=== PATIENT | female | born 1970 | race Hispanic/Latino ===

== ENCOUNTER 2019-03-03 23:37 | Emergency (ER) | payer SELFPAY ==
[~2019-03-03] VITALS: Ht 152.4 cm; Wt 65.8 kg
--- OUTSIDE RECORDS SUMMARY | 2019-03-03 23:40 | XMS REPORT ---
Author Author [facility] Address Unknown Phone Unavailable Care Team Providers Care Digital Print Operator Name Role Phone Unavailable Unavailable Problems This patient has no known problems. Allergies, Adverse Reactions, Alerts This patient has no known allergies or adverse reactions. Medications This patient has no known medications. Results Test Description Test Time Test Comments Text Results Atomic Results Result Comments SCR MAMM BILATERAL MUSA CAD DIGITAL 2018-03-15 12:48:15 - SCR MAMM BILATERAL MUSA CAD DIGITALBILATERAL DIGITAL SCREENING MAMMOGRAM 3D/2D WITH CAD: 03/12/2018CLINICAL: Asymptomatic. Digital breast tomosynthesis was performed in addition to routine CC and MLO views. Current mammographic images were evaluated by either a [employer] M-Vu or a [employer] ImageChecker CAD (computer aided detection system). Comparison is made to exams dated 08/31/2016 mammogram and 03/23/2015 mammogram - [facility]. The tissue of both breasts is heterogeneously dense. This may lower the sensitivity of mammography. There are benign calcifications in the left breast. No suspicious mass, architectural distortion, malignant type calcification, or lymph node abnormality detected. Breast architecture is stable compared to prior exams.IMPRESSION: BENIGNThere is no mammographic evidence of malignancy. Resume annual screening mammography in one year. Rogelio butt/gabriele:03/15/2018 12:48:15 Attending Technologist: Teresa Marley MM, [facility] Technologist: Mireya Villalobos MM, [facility]letter sent: BIRADS 1-2 Normal Mammogram BI-RADS: 2 Benign
--- NOTE | 2019-03-04 01:17 | Diagnostic Imaging Report ---
EXAMINATION: CHEST 2 VIEWS INDICATION: Cough. COMPARISON: None FINDINGS: TUBES and LINES: None. LUNGS: Low lung volumes with mild bronchial wall thickening. Mild patchy right basilar opacity, likely atelectasis. No evidence of lobar consolidation. PLEURA: No pleural effusion or pneumothorax. HEART AND MEDIASTINUM: The cardiomediastinal silhouette is unremarkable. BONES AND SOFT TISSUES: No acute osseous lesion. Soft tissues are unremarkable. UPPER ABDOMEN: No free air under the diaphragm. IMPRESSION: Low lung volumes with mild bronchial thickening, suggestive of bronchitis in the setting of cough. Mild patchy right basilar opacity, more likely atelectasis than pneumonia. Signed by: Dr. Anila Blackwell MD on 03/04/2019 1:13 AM
[2019-03-04 01:23] VITALS: BP 114/69
== END 2019-03-04 01:00 | disposition home or self-care (01) ==
LOC: ER 23:37
DX: R05 Cough (principal); J20.8 Acute bronchitis due to other specified organisms
CPT/HCPCS: 71046; 99283

== ENCOUNTER 2021-04-09 09:26 | Emergency (ER) | payer SELFPAY ==
[~2021-04-09] VITALS: Ht 152.4 cm; Wt 65.8 kg
[2021-04-09] MEDS ORDERED: MUCINEX DM ER1 EACH PO (09:36)
== END 2021-04-09 09:55 | disposition home or self-care (01) ==
LOC: ER 09:33
DX: U07.1 COVID-19 (principal); R05.9 Cough, unspecified; R50.9 Fever, unspecified
CPT/HCPCS: 99283

== ENCOUNTER 2022-04-14 00:05 | Emergency (ER) | payer SELFPAY ==
[~2022-04-14] VITALS: Ht 152.4 cm; Wt 65.8 kg
[~2022-04-14 00:05] MED LIST: MUCINEX DM ER1 EACH PO
[2022-04-14] MEDS ORDERED: SODIUM CHLORIDE 0.9% 1000ML 1,000 ML IV STA (00:10)
[2022-04-14] MEDS ORDERED: ACETAMINOPHEN 325 MG TAB PO STA (00:10)
[2022-04-14] MEDS ORDERED: ONDANSETRON HCL INJ 2MG/ML 2ML 2 MG/ML VIAL IV STA (00:12)
[2022-04-14] MEDS ORDERED: Morphine 4mg INJECTION 4 MG/ML INJ IV ONE (00:15)
[2022-04-14 00:26] LABS: BASOPHILS % 0.2 % (0.0-1.0); EOSINOPHILS # (AUTO) 0.1 (0.0-0.4); EOSINOPHILS % 1.3 % (0.0-6.0); HEMATOCRIT 37.7 % (34.2-44.1); LYMPHOCYTES % 19.3 % (18.0-39.1); MEAN CORPUSCULAR HEMOGLOBIN 29.2 pg (28-32); MEAN CORPUSCULAR HGB CONC 31.8 g/dL (31-35); MEAN CORPUSCULAR VOLUME 91.7 fL (81-99); MONOCYTES # (AUTO) 0.7 (0.2-0.8); MONOCYTES % 7.1 % (4.4-11.3); NEUTROPHILS # (AUTO) 7.4 (2.1-6.9); NEUTROPHILS % 71.8 % (38.7-80.0); PLATELET COUNT 258 x10e3/uL (140-360); RED BLOOD COUNT 4.11 x10e6/uL (3.6-5.1); RED CELL DISTRIBUTION WIDTH 12.1 % (11.7-14.4)
[2022-04-14] MEDS ORDERED: ACETAMINOPHEN 325 MG TAB ONE (00:31)
[2022-04-14] MEDS ORDERED: ONDANSETRON HCL INJ 2MG/ML 2ML 2 MG/ML VIAL ONE (00:31)
[2022-04-14] MEDS ORDERED: Morphine 4mg INJECTION 4 MG/ML INJ ONE (00:32)
[2022-04-14 00:49] LABS: CLARITY,URINE CLEAR (CLEAR); COLOR,URINE STRAW (YELLOW); KETONES,URINE NEGATIVE (NEGATIVE); LEUKOCYTE ESTERASE ,URINE NEGATIVE (NEGATIVE); NITRITE,URINE NEGATIVE (NEGATIVE); PROTEIN,URINE DIPSTICK NEGATIVE (NEGATIVE); URINE UROBILINOGEN 0.2 mg/dL (0.2 - 1)
[2022-04-14 00:52] LABS: BACTERIA,URINE RARE /HPF; EPITHELIAL CELLS,URINE FEW /LPF; RBC,URINE 0-5 /HPF (0-5); WBC,URINE (MAN) 0-5 /HPF (0-5)
[2022-04-14 00:58] LABS: ALBUMIN 3.3 g/dL (3.5-5.0); ALBUMIN/GLOBULIN RATIO 0.9 (0.8-2.0); ANION GAP 18.9 mmol/L (8-16); CALCIUM 8.9 mg/dL (8.4-10.2); CREATININE, SERUM 3.81 mg/dL (0.57-1.11); POTASSIUM 3.9 mmol/L (3.5-5.1)
[2022-04-14] MEDS ORDERED: AUGMENTIN 500-1 EACH PO (02:53)
[2022-04-14] MEDS ORDERED: ONDANSETRON ODT4 MG PO (02:53)
[2022-04-14] MEDS ORDERED: ULTRAM 50MG50 MG PO (02:53)
[2022-04-14 03:15] VITALS: BP 107/67
== END 2022-04-14 03:12 | disposition home or self-care (01) ==
LOC: ER 00:11
DX: R11.2 Nausea with vomiting, unspecified (principal); R10.11 Right upper quadrant pain; R94.4 Abnormal results of kidney function studies
CPT/HCPCS: 36415; 74176; 80053; 81001; 83690; 85025; 99284; J2270; J2405; J7030; U0002

== ENCOUNTER 2024-12-12 20:34 | Emergency (ER) | payer SELFPAY ==
[~2024-12-12] VITALS: Ht 152.4 cm; Wt 71.2 kg
[~2024-12-12 20:34] MED LIST changes: +AUGMENTIN 500-1 EACH PO; +ONDANSETRON ODT4 MG PO; +ULTRAM 50MG50 MG PO
[2024-12-12 21:50] VITALS: PULSE 75; RESP 19; TEMP 98.8; O2SAT 98
== END 2024-12-12 23:24 | disposition left against medical advice (07) ==
LOC: ER 23:24
DX: L29.9 Pruritus, unspecified (principal)